=== PATIENT | male | born 1970 | race Caucasian/White ===

== ENCOUNTER 2018-03-29 14:56 | Emergency (ER) | payer MEDICAID, SELFPAY ==
[2018-03-29] MEDS: PERCOCET 5MG/325MG TAB PO (16:41)
== END 2018-03-29 17:41 | disposition home or self-care (01) ==
LOC: M ED 14:56
DX: S80.02XA Contusion of left knee, initial encounter (principal); M17.12 Unilateral primary osteoarthritis, left knee; W19.XXXA Unspecified fall, initial encounter; Y92.099 Unspecified place in other non-institutional residence as the place of occurrence of the external cause; Y93.9 Activity, unspecified; Y99.9 Unspecified external cause status; Z72.0 Tobacco use
CPT/HCPCS: 73564

== ENCOUNTER 2018-04-12 08:22 | Emergency (ER) | payer MEDICAID, OTHER ==
[2018-04-12] MEDS: NORCO, ANEXSIA 5/325MG TABLET (HYDROcodone/ACETAMINOPHEN) PO (09:46)
== END 2018-04-12 10:48 | disposition home or self-care (01) ==
LOC: M ED 08:22
DX: M25.571 Pain in right ankle and joints of right foot (principal); R60.0 Localized edema; M54.9 Dorsalgia, unspecified; C81.90 Hodgkin lymphoma, unspecified, unspecified site; F17.210 Nicotine dependence, cigarettes, uncomplicated
CPT/HCPCS: 73610

== ENCOUNTER → 2018-05-29 | Outpatient (CLI) | payer OTHER, MEDICAID ==
[2018-05-29 14:14] LABS: HEMATOCRIT 45.9 % (42.0-52.0); HEMOGLOBIN 15.9 g/dl (13.5-17.5); MEAN CORPUSCULAR HEMOGLOBIN 31.2 pg (27.0-33.0); MEAN CORPUSCULAR HGB CONC 34.6 g/dl (32.0-36.5); MEAN CORPUSCULAR VOLUME 90.2 fl (80.0-96.0); PLATELET COUNT, AUTOMATED 325 10^3/uL (150-450); RED BLOOD COUNT 5.09 10^6/uL (4.30-6.10); RED CELL DISTRIBUTION WIDTH 12.9 % (11.5-14.5); WHITE BLOOD COUNT 12.8 10^3/uL (4.0-10.0)
[2018-05-29 14:33] LABS: ESTIMATED AVERAGE GLUCOSE 117 MG/DL (60-110); HEMOGLOBIN A1c 5.7 %
[2018-05-29 14:45] LABS: ALBUMIN 3.6 GM/DL (3.2-5.2); ALKALINE PHOSPHATASE 80 U/L (45-117); ALT/SGPT 45 U/L (12-78); ANION GAP 9 MEQ/L (8-16); AST/SGOT 23 U/L (7-37); BILIRUBIN,TOTAL 0.4 MG/DL (0.2-1.0); BLOOD UREA NITROGEN 15 MG/DL (7-18); CALCIUM LEVEL 8.6 MG/DL (8.5-10.1); CARBON DIOXIDE LEVEL 24 MEQ/L (21-32); CHLORIDE LEVEL 108 MEQ/L (98-107); CREATININE FOR GFR 0.83 MG/DL (0.70-1.30); FREE T4 1.22 NG/DL (0.76-1.46); GLOMERULAR FILTRATION RATE > 60.0 (>56); GLUCOSE, FASTING 99 MG/DL (70-100); POTASSIUM SERUM 4.1 MEQ/L (3.5-5.1); SODIUM LEVEL 141 MEQ/L (136-145); TOTAL PROTEIN 7.2 GM/DL (6.4-8.2)
== END ==
LOC: M LAB 13:33
DX: R53.83 Other fatigue (principal); Z13.1 Encounter for screening for diabetes mellitus
CPT/HCPCS: 84443

== ENCOUNTER 2018-07-04 06:14 | Day surgery (SDC) | payer OTHER ==
[~2018-07-04 06:14] MED LIST: ACETAMINOPHEN 325 MG TAB PO; LIDOCAINE 1% MDV 20ML VIAL SQ
[2018-07-04] MEDS ORDERED: MAXITROL OPHTH SUSP 5 ML As Ordered (06:38)
[2018-07-04] MEDS: LR 1,000 ML IV (06:40)
[2018-07-04] MEDS ORDERED: LIDOCAINE 2% INJ 100 MG/5 ML SDV (FOR ANES.) As Ordered (06:52)
[2018-07-04] MEDS ORDERED: dexameTHASONE 4 MG/ML 1ML VIAL (J1100) As Ordered (06:52)
[2018-07-04] MEDS ORDERED: PROPOFOL 200 MG/20 ML VIAL As Ordered (06:52)
[2018-07-04] MEDS ORDERED: ONDANSETRON 4MG/2ML VIAL (J2405) As Ordered (06:52)
[2018-07-04] MEDS ORDERED: MIDAZOLAM INJ 2 MG/2 ML VIAL (J2250) As Ordered (06:53)
[2018-07-04] MEDS ORDERED: fentaNYL 100 MCG/2 ML INJECTION (J3010) As Ordered (06:53)
[2018-07-04] MEDS: ceFAZolin 1GM INJ (J0690 PER 500MG) As Ordered (07:48)
[2018-07-04] MEDS ORDERED: SUGAMMADEX SODIUM 500 MG/5 ML VIAL (BRIDION) As Ordered (07:58)
[2018-07-04] MEDS ORDERED: PHENYLephrine HCL 500 MCG/5 ML (100MCG/ML) SYRINGE (J2370) As Ordered (08:03)
[2018-07-04] MEDS: POVIDONE-IODINE 5% OPHTH PREP SOL 30ML As Ordered (08:03)
[2018-07-04] MEDS: LIDOCAINE 2% W/EPIN INJ 20ML **PRES FREE As Ordered (08:04)
[2018-07-04] MEDS: MAXITROL OPHTH OINT 3.5 GM As Ordered (09:10)
[2018-07-04] MEDS ORDERED: TRIMETHOBENZAMIDE 300 MG CAP PO (09:45)
[2018-07-04] MEDS ORDERED: LR 1,000 ML IV ×2 (09:45→11:00)
[2018-07-04] MEDS: fentaNYL 100 MCG/2 ML INJECTION (J3010) IV ×4 (10:00→10:21)
[2018-07-04] MEDS: PERCOCET 5MG/325MG TAB PO ×2 (10:04→10:25)
[2018-07-04] MEDS: ONDANSETRON 4MG/2ML VIAL (J2405) IV (10:08)
[2018-07-04] MEDS ORDERED: MORPHINE 4 MG/ML 1ML VIAL/SYRINGE (J2270) As Ordered (10:52)
[2018-07-04] MEDS ORDERED: fentaNYL 100 MCG/2 ML INJECTION (J3010) IV (11:00)
[2018-07-04] MEDS ORDERED: PERCOCET 5MG/325MG TAB PO (11:00)
[2018-07-04] MEDS ORDERED: ONDANSETRON 4MG/2ML VIAL (J2405) IV (11:00)
[2018-07-04] MEDS: MORPHINE 10 MG/ML 1ML VIAL (J2270) IV ×2 (11:01→11:07)
== END 2018-07-04 12:10 | disposition home or self-care (01) ==
LOC: M SDC 06:14
DX: H54.40 Blindness, one eye, unspecified eye (principal); H44.522 Atrophy of globe, left eye; F32.9 Major depressive disorder, single episode, unspecified; M17.0 Bilateral primary osteoarthritis of knee; Z92.21 Personal history of antineoplastic chemotherapy; Z85.72 Personal history of non-Hodgkin lymphomas; Z72.0 Tobacco use; Z87.81 Personal history of (healed) traumatic fracture
CPT/HCPCS: 65103

== ENCOUNTER → 2019-04-23 | Outpatient (CLI) | payer MEDICAID ==
[~2019-04-23] MED LIST changes: -ACETAMINOPHEN 325 MG TAB PO; -LIDOCAINE 1% MDV 20ML VIAL SQ; +MAXI0.1O OS; +MOBI4TAB PO; +NATU99.0 OS; +PERC5TAB12 PO
[2019-04-23 17:29] LABS: ALBUMIN 3.6 GM/DL (3.2-5.2); ALT/SGPT 39 U/L (12-78); BILIRUBIN,TOTAL 0.2 MG/DL (0.2-1.0); BLOOD UREA NITROGEN 15 MG/DL (7-18); CALCIUM LEVEL 8.5 MG/DL (8.5-10.1); CARBON DIOXIDE LEVEL 23 MEQ/L (21-32); CHLORIDE LEVEL 106 MEQ/L (98-107); CHOLESTEROL LEVEL 141 MG/DL (<200); CHOLESTEROL RISK RATIO 3.615 (<5); CREATININE FOR GFR 0.76 MG/DL (0.70-1.30); GLOMERULAR FILTRATION RATE > 60.0 (>56); GLUCOSE, FASTING 96 MG/DL (70-100); HDL CHOLESTEROL 39 MG/DL (>40); LDL CHOLESTEROL 86 MG/DL (<100); NON-HDL-C 102 MG/DL; POTASSIUM SERUM 4.4 MEQ/L (3.5-5.1); SODIUM LEVEL 139 MEQ/L (136-145); TOTAL PROTEIN 6.9 GM/DL (6.4-8.2); TRIGLYCERIDES LEVEL 82 MG/DL (<150)
[2019-04-25 06:53] LABS: HEPATITIS B SURFACE ANTIBODY POSITIVE (POSITIVE)
[2019-04-25 07:03] LABS: HEPATITIS B SURFACE ANTIGEN NEGATIVE (NEGATIVE)
[2019-04-25 08:07] LABS: HEPATITIS C VIRUS ABY INDEX > 11.0 INDEX (<0.8)
[2019-04-28 00:06] LABS: HEPATITIS A IgG TOTAL Positive (Negative); HEPATITIS C VIRUS GENOTYPE 1a (.)
== END ==
LOC: M LAB 16:00
PROVIDERS: ATTEND Hospitalist
DX: Z71.89 Other specified counseling (principal); B19.20 Unspecified viral hepatitis C without hepatic coma

== ENCOUNTER → 2019-04-25 | Outpatient (CLI) | payer OTHER, SELFPAY ==
--- NOTE | 2019-04-25 11:59 | REP ---
RIGHT UPPER QUADRANT ULTRASOUND: Real-time sonographic evaluation of the right upper quadrant performed. The patient has had prior cholecystectomy. There is expected prominence of common bile duct 9 mm in diameter. The liver demonstrates a cyst in the lateral left lobe 5 mm, inferolaterally in the right lobe 5 mm and at the right dome 1.5 cm in diameter. No gross pancreatic mass is seen. Right kidney demonstrates no hydronephrosis with normal size 1.5 cm in length. The visualized abdominal aorta is normal in caliber. There is no ascites. IMPRESSION: Status post cholecystectomy with expected prominent common bile duct 9 mm. Liver cysts. Electronically Signed by Antonio Rea MD 04/26/2019 09:23 A
== END ==
LOC: M RAD 09:49
PROVIDERS: ATTEND Hospitalist
DX: B18.2 Chronic viral hepatitis C (principal)

== ENCOUNTER → 2020-02-21 | Outpatient (REF) | payer OTHER | LOC: M SFHCPLAZ 14:46 | DX: Z86.19 Personal history of other infectious and parasitic diseases (principal); Z13.1 Encounter for screening for diabetes mellitus ==

== ENCOUNTER → 2020-03-05 | Outpatient (CLI) | payer OTHER ==
[2020-03-05 16:41] LABS: HEMATOCRIT 40.2 % (42.0-52.0); HEMOGLOBIN 13.8 g/dl (13.5-17.5); MEAN CORPUSCULAR HEMOGLOBIN 30.6 pg (27.0-33.0); MEAN CORPUSCULAR HGB CONC 34.3 g/dl (32.0-36.5); MEAN CORPUSCULAR VOLUME 89.1 fl (80.0-96.0); PLATELET COUNT, AUTOMATED 279 10^3/uL (150-450); RED BLOOD COUNT 4.51 10^6/uL (4.30-6.10); WHITE BLOOD COUNT 9.5 10^3/uL (4.0-10.0)
[2020-03-05 17:01] LABS: ALBUMIN 3.5 GM/DL (3.2-5.2); ALT/SGPT 52 U/L (12-78); BILIRUBIN,TOTAL 0.4 MG/DL (0.2-1.0); BLOOD UREA NITROGEN 16 MG/DL (7-18); CALCIUM LEVEL 8.6 MG/DL (8.5-10.1); CARBON DIOXIDE LEVEL 27 MEQ/L (21-32); CHLORIDE LEVEL 107 MEQ/L (98-107); CREATININE FOR GFR 0.72 MG/DL (0.70-1.30); GLOMERULAR FILTRATION RATE > 60.0 (>56); GLUCOSE, FASTING 105 MG/DL (70-100); HEMOGLOBIN A1c 5.6 %; POTASSIUM SERUM 3.7 MEQ/L (3.5-5.1); SODIUM LEVEL 140 MEQ/L (136-145); TOTAL PROTEIN 6.8 GM/DL (6.4-8.2)
[2020-03-31 08:06] LABS: HEPATITIS C QUANTITATION 910540 IU/mL (.)
== END ==
LOC: M LAB 15:57
PROVIDERS: ATTEND Hospitalist
DX: Z13.1 Encounter for screening for diabetes mellitus (principal); Z86.19 Personal history of other infectious and parasitic diseases

== ENCOUNTER 2020-04-11 00:41 | Emergency (ER) | payer OTHER ==
[~2020-04-11] VITALS: Ht 188 cm; Wt 90.1 kg
[2020-04-11 00:41] VITALS: BP 132/72
[2020-04-11] MEDS ORDERED: KETOROLAC 60MG 2ML VIAL IM ONE (01:30)
[2020-04-11] MEDS ORDERED: IBUPROFEN 800 MG TAB PO ONE (01:45)
--- NOTE | 2020-04-11 01:46 | REPVR ---
PROCEDURE INFORMATION: Exam: XR Lumbosacral Spine, 2 or 3 Views Exam date and time: 04/11/2020 1:22 AM Age: 50 years old Clinical indication: Pain; Other: Trauma; Additional info: Trauma TECHNIQUE: Imaging protocol: XR of the lumbosacral spine, 2 or 3 views. COMPARISON: No relevant prior studies available. FINDINGS: Limitations: Examination is limited by body habitus. Vertebrae: No acute fracture. No subluxation. Disc space narrowing at L5-S1. There appears to be transitional lumbosacral vertebra. Soft tissues: Unremarkable. Intraperitoneal space: Surgical clip in the right upper quadrant of the abdomen. Gastrointestinal tract: Copious stool in the colon. IMPRESSION: 1. No acute fracture. 2. Disc space narrowing at L5-S1. Electronically signed by: Huy Falcon On 04/11/2020 01:45:56 AM
== END 2020-04-11 01:58 | disposition home or self-care (01) ==
LOC: M ED 00:41
DX: S39.012A Strain of muscle, fascia and tendon of lower back, initial encounter (principal); F17.200 Nicotine dependence, unspecified, uncomplicated; Y92.9 Unspecified place or not applicable; Y93.9 Activity, unspecified; Y99.9 Unspecified external cause status

== ENCOUNTER 2020-09-26 13:41 | Emergency (ER) | payer OTHER, SELFPAY ==
[~2020-09-26] VITALS: Ht 188 cm; Wt 88.8 kg
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
--- OUTSIDE RECORDS SUMMARY | 2020-09-26 13:50 | CCD ---
Author Author [facility] Organization [facility] Address Unknown Phone Unavailable Care Team Providers Care Communications Agent Name Role Phone Vinicius Keenan Unavailable PROBLEMS Type Condition ICD9-CM Code KRH64-UO Code Onset Dates Condition S tatus SNOMED Code Notes Problem Other chronic pain G89.29 Active 42140308 Problem Osteoarthritis of left knee, unspecified osteoarthritis ty pe M17.12 Active 764023333260235 Problem Other hammer toe(s) (acquired), right foot M20.41 Active 025581541 Problem Chronic obstructive pulmonary disease, unspecified COPD ty pe J44.9 Active 99367623 Problem Obesity (BMI 30.0-34.9) E66.9 Active 40141825 4068372 Problem Chronic hepatitis C without hepatic coma B18.2 Active 689971684 Problem Smoking F17.200 Active 47591097 Problem Other hammer toe(s) (acquired), left foot M20.42 Active 63383886 ALLERGIES Allergen (clinical drug ingredient) Drug/Non Drug Allergy do cumented on EMR Reaction Allergy Type Onset Date Status Wellbutrin Hives Drug Allergy Active ENCOUNTERS from 1968 to 2020-08-14 Encounter Location Date Provider Diagnosis [facility] Resident [address] [place] [address] Feb, Vinicius Keenan History of hepatitis C Z86.1 9 ; Screening for diabetes mellitus Z13.1 ; Other hammer toe(s) (acquired), left foot M20.42 ; Other hammer toe(s) (acquired), right foot M20.41 ; Encounter for screening for malignant neoplasm of rectum Z12.12 ; Encounter for screening for malignant neoplasm of colon Z12.11 and Smoking F17.200 IMMUNIZATIONS Vaccine Route Administration Date Status Influenza (18 yrs & older) Flublok IM Intramuscular May 15, 2020 Administered SOCIAL HISTORY Tobacco Use: Social History Observation Description Date Details (start date - stop date) Current Smoker Sex Assigned At : Social History Observation Description Sex Assigned At Unknown Audit Question Answer Notes Total Score: 0 Interpretation: Alcohol Education Sexual Hx: Question Answer Notes Had sex in the last 12 months (vaginal, oral, or anal)? No Have you ever had an STD? No Drug and Alcohol Question Answer Notes Total Score: 0 Interpretation: No problems reported Alcohol Screening: Question Answer Notes Did you have a drink containing alcohol in the past year? No Points 0 Interpretation Negative BMI Care Goal Follow-Up Question Answer Notes Above Normal BMI Follow-Up Giving encouragement to exercise Tobacco Use: Question Answer Notes Are you a: current smoker How many cigarettes a day do you smoke? 6-10 Are you interested in quitting? Thinking about quitting Counseled the patient on smoking cessation, education [facility] ed 05/15/2020 REASON FOR REFERRAL No Information VITAL SIGNS Weight 197.8 lbs Feb, Height 72 in Feb, BMI 26.82 kg/m2 Feb, Heart Rate 72 /min Feb, Respiratory Rate 20 /min Feb, Temperature 97.6 degrees Fahrenheit Feb, Oximetry 97 Feb, Blood pressure systolic 126 mm Hg Feb, Blood pressure diastolic 76 mm Hg Feb, MEDICATIONS Medication SIG (Take, Route, Frequency, Duration) Notes Start Da te End Date Status Nicoderm CQ 21 MG/24HR 1 patch to skin Transdermal Once a day fo r 42 days Apr, Not-Taking Ventolin HFA 108 (90 Base) MCG/ACT 2 puffs as needed Inhalation every 6 hrs Apr, Active Capsaicin Arthritis Relief 0.15 % 1 application to aff ected area as needed Externally Three times a day for 30 day(s) Apr, Not-Taking Nicoderm CQ 14 MG/24HR 1 patch to skin Transdermal Once a day fo r 14 days Apr, Not-Taking Spiriva Respimat 2.5 MCG/ACT 2 puffs Inhalation Once a day Apr, Active Capsaicin-Menthol 0.025-10 % as directed Externally Ma x of 4 times a day as needed. Avoid use on damaged, broken, or irritated skin for 30 day(s) Apr, Not-Taking Mavyret 100-40 MG 3 tablets Orally Daily for 28 day(s) May, Active Nicoderm CQ 7 MG/24HR 1 patch to skin Transdermal Once a day for 14 days Apr, Not-Taking Meloxicam 7.5 MG 1 tablet Orally twice daily Not-Taking PROCEDURES No Information RESULTS Component Value Reference Range CBC - Complete Blood Count Reviewed date:03/06/2020 08:08:32 Interpretation: Performing Lab:[facility] [address] [facility] [address] , ,[place] [address] WHITE BLOOD COUNT 9.5 4.0-10.0 RED BLOOD COUNT 4.51 4.30-6.10 HEMOGLOBIN 13.8 13.5-17.5 HEMATOCRIT 40.2 42.0-52.0 MEAN CORPUSCULAR VOLUME 89.1 80.0-96.0 MEAN CORPUSCULAR HEMOGLOBIN 30.6 27.0-33.0 MEAN CORPUSCULAR HGB CONC 34.3 32.0-36.5 RED CELL DISTRIBUTION WIDTH 12.1 11.5-14.5 PLATELET COUNT, AUTOMATED 279 150-450 Comprehensive Metabolic Profile (CMP) Reviewed date:03/06/2020 08:08:04 Interpretation: Performing Lab:[facility] [address] [facility] [address] , ,[place] [address] GLUCOSE, FASTING 105 70-100 BLOOD UREA NITROGEN 16 7-18 CREATININE FOR GFR 0.72 0.70-1.30 GLOMERULAR FILTRATION RATE > 60.0 >56 SODIUM LEVEL 140 136-145 POTASSIUM SERUM 3.7 3.5-5.1 CHLORIDE LEVEL 107 98-107 CARBON DIOXIDE LEVEL 27 21-32 CALCIUM LEVEL 8.6 8.5-10.1 AST/SGOT 35 7-37 ALT/SGPT 52 12-78 ALKALINE PHOSPHATASE 60 45-117 BILIRUBIN,TOTAL 0.4 0.2-1.0 TOTAL PROTEIN 6.8 6.4-8.2 ALBUMIN 3.5 3.2-5.2 ALBUMIN/GLOBULIN RATIO 1.1 HEMOGLOBIN A1c Reviewed date:03/06/2020 08:08:16 Interpretation: Performing Lab:[facility] [address] [facility] [address] , ,[place] [address] HEMOGLOBIN A1c 5.6 ESTIMATED AVERAGE GLUCOSE 114 60-110 HEPATITIS C FIBROSURE [id number] Reviewed date:05/27/2020 14:07:11 Interpretation: Performing Lab:[facility], [facility] [address] [facility] [address] , ,[place] [address] FIBROSIS SCORE 0.55 0.00-0.21 FIBROSIS STAGE . NECROINFLAM SCORE 0.36 0.00-0.17 NECROINFLAMM GRADE A1-Minimal activity . ALPHA 2-MACROGLOBULIN 306 110-276 HAPTOGLOBIN 71 29-370 APOLIPOPROTEIN A-1 128 101-178 TOTAL BILIRUBIN 0.3 0.0-1.2 GGT 72 0-65 ALT 48 0-55 INTERPRETATION . FIBROSIS SCORING . NECROINFLAM SCORING . LIMITATIONS . COMMENT : . HEPATITIS C QUANT BY PCR Reviewed date:05/27/2020 14:07:11 Interpretation: Performing Lab:[facility] [address] [facility] [address] , ,[place] [address] HEPATITIS C QUANTITATION [id number] . Hepatitis C log10 5.959 . REASON FOR VISIT follow up MEDICAL (GENERAL) HISTORY Type Description Date Medical History Hepatitis C chronic 0 stage FII fibrosis score 0.55 HCV RNA 685622 Medical History IVDU HX Surgical History Rt ankle pin and screws 2006 Surgical History Apendectomy 2012 Surgical History Gallbladder 2018 Surgical History Lt eye 2006 Surgical History Left eye removal 08/2018 Hospitalization History Stated above Goals Section No Information Health Concerns No Information MEDICAL EQUIPMENT No Information MENTAL STATUS No Information FUNCTIONAL STATUS No Information ASSESSMENTS Encounter Date Diagnosis Assessment Notes Treatment Notes Treatm ent Clinical Notes Feb, History of hepatitis C (ICD-10 - Z86.19) Patient has a history of hepatitis C. He stated that he was planned to be treated however he never followed through with treatment and had moved to [place] where he was lost to follow-up. I had tested him for Hep B and A antibody to establish vaccination status as he stated that he was vaccinated previously. He does appear to have been vaccinated. He would need Pneumovax. Repeat labs demonstrate Hep C with worsening fibrosis. Patient will need Liver ultrasounds every 6 months with alpha feta protein quant until he is successfully treated. He has been referred to ID previously. He has no showed to his previous appointments to both this office and ID. Will refer him again. Feb, Screening for diabetes mellitus (ICD-10 - Z13.1) Feb, Other hammer toe(s) (acquired), left foot (ICD-1 0 - M20.42) Patient has bilateral hammertoes. Possibly secondary to poor fitting shoes. Patient screened for neuropathy today with filament testing which was negative. Have ordered HgbA1C for diabetes screening. Patient advsied to get better fitting shoes. If problem persists may consider referral to podiatry Feb, Other hammer toe(s) (acquired), right foot (ICD- 10 - M20.41) Feb, Encounter for screening for malignant neoplasm of rectum (ICD-10 - Z12.12) Patient is due for age appropriate colorectal cancer screening. He was referred previously however did not show up for his appointment. At this time the patient states that he will hold off until he gets treated for his Hep C Feb, Encounter for screening for malignant neoplasm of colon (ICD-10 - Z12.11) Feb, Smoking (ICD-10 - F17.200) Patient is a current smoker. He states that he has cut back to less than half a pack per day. Patient encouraged to continue cutting back PLAN OF TREATMENT Medication Medication Name Sig Start Date Stop Date Spiriva Respimat 2.5 MCG/ACT 2 puffs Inhalation Once a day 2018 Mavyret 100-40 MG 3 tablets Orally Daily for 28 day(s) May, Ventolin HFA 108 (90 Base) MCG/ACT 2 puffs as needed Inhalat ion every 6 hrs Apr, Treatment Notes Assessment Notes Clinical Notes History of hepatitis C Patient has a his tory of hepatitis C. He stated that he was planned to be treated however he never followed through with treatment and had moved to [place] where he was lost to follow-up. I had tested him for Hep B and A antibody to establish vaccination status as he stated that he was vaccinated previously. He does appear to have been vaccinated. He would need Pneumovax.Repeat labs demonstrate Hep C with worsening fibrosis. Patient will need Liver ultrasounds every 6 months with alpha feta protein quant until he is successfully treated. He has been referred to ID previously. He has no showed to his previous appointments to both this office and ID. Will refer him again. Other hammer toe(s) (acquired), left foot Patient has bilateral hammertoes. Possibly secondary to poor fitting shoes. Patient screened for neuropathy today with filament testing which was negative. Have ordered HgbA1C for diabetes screening. Patient advsied to get better fitting shoes. If problem persists may consider referral to podiatry Encounter for screening for malignant neoplasm of rectum Patient is due for age appropriate colorectal cancer screening. He was referred previously however did not show up for his appointment. At this time the patient states that he will hold off until he gets treated for his Hep C Smoking Patient is a current smoker. He states that he has cut back to less than half a pack per day. Patient encouraged to continue cutting back Next Appt Details 4 Weeks Reason:F/U for labs Provider Name:Vinicius Keenan, 02:00:00 PM, [address] [place] [address], [address], Follow Up:4 WeeksF/U for labs Insurance Providers Payer Name Payer Address Payer Phone Insured Name Patient Relati onship to Insured Coverage Start Date Coverage End Date SELF PAY ONLY - SP1 DARRIAN ARAIZA self
[2020-09-26 14:48] VITALS: BP 140/70
--- OUTSIDE RECORDS SUMMARY | 2020-09-26 15:10 | CCD ---
Author Author [facility] Organization [facility] Address Unknown Phone Unavailable Support Name Relationship Address Phone JEROD RIOS Next Of Kin Unknown GEOVANNA ARAIZA Next Of Kin [address] [place] [address] UE Next Of Kin Unknown Unavailable SISTER KENZIE LEVI Next Of Kin [address] [place], [place] [id number] Geovanna Forman ECON [address] [place] [address] Unavailable Re-disclosure Warning The records that you [...] is protected by Article 27-F of the [facility] Public Health law. If you continue you may have access to information: Regarding HIV / AIDS; Provided by facilities licensed or operated by the [facility] Office of Mental Health; or Provided by the [facility] Office for People With Developmental Disabilities. If such information is present, then the following [facility] mandated warning applies: This information has [...] law may result in a fine or fpc sentence or both. A general authorization for the release of medical or other information is NOT sufficient authorization for further disc losure. Encounters Encounter Providers Location Date Indications Data Source(s ) [place] [address] [facility] [address] 06/19/2020 12:00:00 AM EST eCW1 ([facility]) [place] [address] [facility] [address] 05/15/2020 12:00:00 AM EDT eCW1 ([facility]) [place] [address] [facility] [address] 02/21/2020 12:00:00 AM EDT eCW1 ([facility]) Immunizations Vaccine Date Status Description Data Source(s) influenza, recombinant, quadrIvalent,injectable, prese rvative free 05/15/2020 01:09:00 PM EDT completed eCW1 ([facility]) influenza, recombinant, quadrIvalent,injectable, prese rvative free 05/15/2020 01:09:00 PM EDT completed eCW1 ([facility]) influenza, recombinant, quadrIvalent,injectable, prese rvative free 05/15/2020 01:09:00 PM EDT completed eCW1 ([facility]) Medications Medication Brand Name Start Date Product [...] {tablets} active Mavyret 100-40 MG eC W1 ([facility]) Mavyret 100-40 MG Mavyret 100-40 MG 05/15/2020 12:00:00 AM EDT 3.0 {tablets} active Mavyret 100-40 MG eC W1 ([facility]) Mavyret 100-40 MG Mavyret 100-40 MG 05/15/2020 12:00:00 AM EDT 3.0 {tablets} active Mavyret 100-40 MG eC W1 ([facility]) 800 mg 09/21/2019 12:00:00 AM EST [...] type / Coverage type Policy ID Covered democrat ID Covered democrat's relationship to burr Policy Burr Plan Information [facility] [id number] PROGRESSIVE CO NO FAULT [id number] SP [id number] SELF PAY ONLY [id number] SP [id number] PROGRESSIVE O [id number] S [id number] [facility] [id number] SP [id number] SELF PAY ONLY - SP1 SP SELF PAY ONLY [id number] SP [id number] MEDICAID [id number] SP [id number] [facility]O [id number] SP [id number] [facility] [place] - [id number] 18 [id number] ANSI-Commercial [id number] MAURO [id number] SP [id number] MEDICAID [id number] SP [id number] ANSI-Commercial [id number] ANSI-Commercial [id number] ANSI-Commercial [id number] MAURO [id number] SP [id number] MEDICAID M [id number] S [id number] SELF PAY SP Problems, Conditions, and Diagnoses Code Display Name Description Problem Type Effective Dates Data Source(s) J44.9 76408185 Chronic obstructive pulmonary di sease, unspecified COPD type Problem 05/15/2020 12:00:00 AM EDT eCW1 ([facility]) M20.42 15469509 Other hammer toe(s) (acquired), left foot Problem 02/21/2020 12:00:00 AM EDT eCW1 ([facility]) F17.200 67071724 Smoking Problem 02/21/2020 12:00:00 AM ED T eCW1 ([facility]) M20.41 903942917 Other hammer toe(s) (acquired), right luiz t Problem 02/21/2020 12:00:00 AM EDT eCW1 ([facility]) Results ID Date Data Source HEPATITIS C QUANT BY PCR 03/05/2020 12:00:00 AM EDT eCW1 ([facility]) Name Value Range Interpretation Code Description Data Ling rce(s) Supporting Document(s) 5.959 . Hepatitis C log10 eCW1 ([facility]) 577672 . HEPATITIS C QUANTITATION eCW1 ([facility]) ID Date Data Source HEPATITIS C FIBROSURE [id number] 03/05/2020 12:00:00 AM EDT eC W1 ([facility]) Name Value Range Interpretation Code Description Data Ling rce(s) Supporting Document(s) 0.55 0.00-0.21 FIBROSIS SCORE eCW1 ([facility]) A1-Minimal activity . NECROINFLAMM GRA DE eCW1 ([facility]) 306 110-276 ALPHA 2-MACROGLOBULIN eCW1 ([facility]) 0.36 0.00-0.17 NECROINFLAM SCORE eCW1 ([facility]) . FIBROSIS STAGE eCW1 ([facility]) 128 101-178 APOLIPOPROTEIN A-1 eCW1 ([facility]) 0.3 0.0-1.2 TOTAL BILIRUBIN eCW1 ([facility]) 72 0-65 GGT eCW1 ([facility]) 71 29-370 HAPTOGLOBIN eCW1 ([facility]) . FIBROSIS SCORING eCW1 ([facility]) . NECROINFLAM SCORING eCW1 ([facility]) . LIMITATIONS eCW1 ([facility]) . INTERPRETATION eCW1 ([facility]) 48 0-55 ALT eCW1 ([facility]) . COMMENT : eCW1 ([facility]) ID Date Data Source [id number] 03/05/2020 12:00:00 AM EDT eCW1 ([facility]) Name Value Range Interpretation Code Description Data Ling rce(s) Supporting Document(s) Hemoglobin A1c/Hemoglobin.total in Blood 5.6 HEMOGLOBIN A1c eCW1 ([facility]) ID Date Data Source Comprehensive Metabolic Profile (CMP) 03/05/2020 12:00:00 AM EDT eCW1 ([facility]) Name Value Range Interpretation Code Description Data Ling rce(s) Supporting Document(s) 105 70-100 GLUCOSE, FASTING eCW1 ([facility]) > 60.0 >56 GLOMERULAR FILTRATION RATE eCW 1 ([facility]) 0.72 0.70-1.30 CREATININE FOR GFR eCW1 ([facility]) 16 7-18 BLOOD UREA NITROGEN eCW1 ([facility]) 107 98-107 CHLORIDE LEVEL eCW1 ([facility]) 27 21-32 CARBON DIOXIDE LEVEL eCW1 ([facility]) 140 136-145 SODIUM LEVEL eCW1 ([facility]) 3.7 3.5-5.1 POTASSIUM SERUM eCW1 ([facility]) 35 7-37 AST/SGOT eCW1 ([facility]) 52 12-78 ALT/SGPT eCW1 ([facility]) 60 45-117 ALKALINE PHOSPHATASE eCW1 ([facility]) 8.6 8.5-10.1 CALCIUM LEVEL eCW1 ([facility]) 6.8 6.4-8.2 TOTAL PROTEIN eCW1 ([facility]) 1.1 ALBUMIN/GLOBULIN RATIO eCW1 ([facility]) 3.5 3.2-5.2 ALBUMIN eCW1 ([facility]) 0.4 0.2-1.0 BILIRUBIN,TOTAL eCW1 ([facility]) ID Date Data Source CBC - Complete Blood Count 03/05/2020 12:00:00 AM EDT eCW1 ( [facility]) Name Value Range Interpretation Code Description Data Ling rce(s) Supporting Document(s) 9.5 4.0-10.0 WHITE BLOOD COUNT eCW1 ([facility]) 13.8 13.5-17.5 HEMOGLOBIN eCW1 ([facility]) 40.2 42.0-52.0 HEMATOCRIT eCW1 ([facility]) 4.51 4.30-6.10 RED BLOOD COUNT eCW1 ([facility]) 89.1 80.0-96.0 MEAN CORPUSCULAR VOLUME e CW1 ([facility]) 34.3 32.0-36.5 MEAN CORPUSCULAR HGB CONC eCW1 ([facility]) 30.6 27.0-33.0 MEAN CORPUSCULAR HEMOGLOB IN eCW1 ([facility]) 12.1 11.5-14.5 RED CELL DISTRIBUTION WID TH eCW1 ([facility]) 279 150-450 PLATELET COUNT, AUTOMATED eCW1 ([facility]) Procedure Social History Code Duration Value Status Description Data Source(s ) Smoking 05/15/2020 12:00:00 AM EDT Current Smoker completed Curre nt Smoker eCW1 ([facility]) Smoking 05/15/2020 12:00:00 AM EDT Current Smoker completed Curre nt Smoker eCW1 ([facility]) Smoking 05/15/2020 12:00:00 AM EDT Current Smoker completed Curre nt Smoker eCW1 ([facility]) Vital Signs ID Date Data Source UNK Name Value Range Interpretation Code Description Data Source(s) Diastolic blood pressure 62 mm[Hg] 62 mm[Hg] eCW1 ([facility]) Systolic blood pressure 124 mm[Hg] 124 mm[Hg] e CW1 ([facility]) Body temperature 98.9 [degF] 98.9 [degF] eCW1 ( [facility]) Respiratory rate 18 /min 18 /min eCW1 ([facility]) Heart rate 81 /min 81 /min eCW1 ([facility]) Body mass index (BMI) [Ratio] 26.58 kg/m2 26.58 kg/m2 eCW1 ([facility]) Body height 72 [in_i] 72 [in_i] eCW1 ([facility]) Body weight 196 [lb_av] 196 [lb_av] eCW1 ([facility]) Diastolic blood pressure 76 mm[Hg] 76 mm[Hg] eCW1 ([facility]) Systolic blood pressure 126 mm[Hg] 126 mm[Hg] e CW1 ([facility]) Body temperature 97.6 [degF] 97.6 [degF] eCW1 ( [facility]) Respiratory rate 20 /min 20 /min eCW1 ([facility]) Heart rate 72 /min 72 /min eCW1 ([facility]) Body mass index (BMI) [Ratio] 26.82 kg/m2 26.82 kg/m2 eCW1 ([facility]) Body height 72 [in_i] 72 [in_i] eCW1 ([facility]) Body weight 197.8 [lb_av] 197.8 [lb_av] eCW1 ([facility]) Patient Treatment Plan of Care Planned Activity Planned Date Details Description Data Source (s) Mavyret 100-40 MG 05/15/2020 12:00:00 AM EDT eCW1 ([facility]) Mavyret 100-40 MG 05/15/2020 12:00:00 AM EDT eCW1 ([facility]) Mavyret 100-40 MG 05/15/2020 12:00:00 AM EDT eCW1 ([facility])
== END 2020-09-26 14:49 | disposition home or self-care (01) ==
LOC: M ED 13:41
DX: S29.012A Strain of muscle and tendon of back wall of thorax, initial encounter (principal); X58.XXXA Exposure to other specified factors, initial encounter; Y92.9 Unspecified place or not applicable; Y93.9 Activity, unspecified; Y99.9 Unspecified external cause status

== ENCOUNTER → 2020-12-25 | Outpatient (REF) ==
--- NOTE | 2020-12-25 15:30 | REPPI ---
INDICATION: DISABILITY DIAGNOSIS DETERMINATION COMPARISON: None. TECHNIQUE: AP, lateral, bilateral oblique views left foot. FINDINGS: Degenerative changes include joint space narrowing involving the interphalangeal joints as well as increased sclerosis and joint space narrowing at the 1st metatarsophalangeal joint. No acute fracture or dislocation.. Lateral view demonstrates very small calcaneal heel spur. IMPRESSION: Mild relatively age-related degenerative changes. <Electronically signed by Demarcus Lange > 12/25/20 [id number]
--- NOTE | 2020-12-25 15:46 | REPPI ---
INDICATION: DISABILITY DIAGNOSIS DETERMINATION COMPARISON: None. TECHNIQUE: AP, lateral, bilateral oblique and sunrise views. FINDINGS: The osseous structures and joint spaces are intact and essentially age-appropriate. Lateral view demonstrates very subtle spurring along the posterior patellar contour with subtle patellofemoral joint space narrowing. There is no evidence for acute fracture or dislocation. No joint effusion is appreciated. Surrounding soft tissues are unremarkable. No subcutaneous emphysema or radiodense foreign body. IMPRESSION: Very minimal degenerative changes involving the patella and patellofemoral joint space. <Electronically signed by Demarcus Lange > 12/25/20 [id number]
== END ==
LOC: M PLAIMG 13:59
PROVIDERS: ATTEND Internal Medicine
DX: M19.072 Primary osteoarthritis, left ankle and foot (principal); M17.12 Unilateral primary osteoarthritis, left knee

== ENCOUNTER 2024-04-26 17:57 | Emergency (ER) | payer OTHER, SELFPAY | END 2024-04-26 18:07 | disposition left against medical advice (07) | LOC: M ED 17:57 | DX: Z53.21 Procedure and treatment not carried out due to patient leaving prior to being seen by health care provider (principal) ==

== ENCOUNTER 2024-04-27 00:59 | Emergency (ER) | payer SELFPAY ==
[~2024-04-27] VITALS: Ht 188 cm; Wt 88.3 kg
[2024-04-27 01:01] VITALS: TEMP 96.3
[2024-04-27 06:02] VITALS: BP 128/72; O2SAT 96
== END 2024-04-27 06:03 | disposition home or self-care (01) ==
LOC: M ED 00:59
DX: S22.41XA Multiple fractures of ribs, right side, initial encounter for closed fracture (principal); V03.131A Pedestrian on standing electric scooter injured in collision with car, pick-up or van in traffic accident, initial encounter; Y92.410 Unspecified street and highway as the place of occurrence of the external cause; Y93.89 Activity, other specified; Y99.9 Unspecified external cause status

== ENCOUNTER 2024-08-28 05:50 | Inpatient (IN) | payer MEDICAID, SELFPAY ==
[~2024-08-28] VITALS: Ht 188 cm; Wt 90.5 kg
[2024-08-28 08:29] LABS: HEMATOCRIT 46.4 % (42.0-52.0); HEMOGLOBIN 16.4 g/dl (13.5-17.5); MEAN CORPUSCULAR HEMOGLOBIN 31.2 pg (27.0-33.0); MEAN CORPUSCULAR HGB CONC 35.3 g/dl (32.0-36.5); MEAN CORPUSCULAR VOLUME 88.2 fl (80.0-96.0); PLATELET COUNT, AUTOMATED 419 10^3/uL (150-450); RED BLOOD COUNT 5.26 10^6/uL (4.30-6.10); WHITE BLOOD COUNT 17.9 10^3/uL (4.0-10.0)
[2024-08-28 08:47] LABS: ETHYL ALCOHOL (ETHANOL) < 0.003 % (0.000-0.010)
[2024-08-28 08:48] LABS: SALICYLATE LEVEL < 3.0 MG/DL (<30)
[2024-08-28 08:49] LABS: ALBUMIN 4.1 G/DL (3.2-5.2); ALKALINE PHOSPHATASE 93 U/L (40-129); ALT/SGPT 25 U/L (7.0-40); AST/SGOT 31 U/L (<34); BILIRUBIN,DIRECT 0.3 MG/DL (<0.4); BILIRUBIN,TOTAL 0.8 MG/DL (0.3-1.2); BLOOD UREA NITROGEN 8 MG/DL (9-23); CALCIUM LEVEL 9.2 MG/DL (8.5-10.1); CARBON DIOXIDE LEVEL 30 MMOL/L (20-31); CHLORIDE LEVEL 103 MMOL/L (98-107); CREATININE FOR GFR 0.79 MG/DL (0.70-1.30); GLOMERULAR FILTRATION RATE > 60.0 (>56); GLUCOSE, FASTING 115 MG/DL (60-100); SODIUM LEVEL 140 MMOL/L (136-145); TOTAL PROTEIN 7.9 G/DL (5.7-8.2)
[2024-08-28] MEDS ORDERED: HOME MED LIST COMPLETE! XX SCH (08:50)
[2024-08-28 08:53] LABS: THYROID STIMULATING HORMONE 2.168 uIU/ML (0.55-4.78)
[2024-08-28 08:58] LABS: BARBITURATES URINE NEGATIVE (NEGATIVE); BENZODIAZEPINES URINE NEGATIVE (NEGATIVE); CANNABINOIDS URINE NEGATIVE (NEGATIVE); COCAINE METABOLITE URINE NEGATIVE (NEGATIVE); METHADONE URINE NEGATIVE (NEGATIVE); OPIATES URINE NEGATIVE (NEGATIVE); PHENCYCLIDINE URINE NEGATIVE (NEGATIVE)
[2024-08-28 09:05] LABS: AMPHETAMINES LEVEL URINE POSITIVE (NEGATIVE)
[2024-08-28 10:23] LABS: KETONE, URINE AUTO RFX NEGATIVE (NEGATIVE); LEUKOCYTE ESTERASE UR AUTO RFX NEGATIVE (NEGATIVE); MUCUS, URINE RFX SMALL (NEGATIVE); NITRITE, URINE AUTO RFX NEGATIVE (NEGATIVE); RBC, URINE AUTO RFX 1 /HPF (0-3); SQUAM EPITHELIAL CELL UR AURFX 0 /HPF (0-6); WBC, URINE AUTO RFX 0 /HPF (0-3)
[2024-08-28] MEDS: LORazepam 1 MG TAB PO STA (10:36)
[2024-08-29] MEDS ORDERED: diphenhydrAMINE 50MG/ML VIAL IM ONE (13:30)
[2024-08-29] MEDS ORDERED: HALOPERIDOL LACTATE 5MG/ML VIAL IM ONE (13:30)
[2024-08-29] MEDS ORDERED: LORazepam 2 MG/ML 1ML VIAL IM ONE (13:30)
[2024-08-29] MEDS: OLANZapine ORAL DISINTEGRATING TAB 5MG PO ONE (13:36)
[2024-08-29 14:42] VITALS: BP 118/60; TEMP 98.4; O2SAT 100
[2024-08-29] MEDS: NICOTINE 21MG/24HR 1 EA TRANSDERMAL TD ONE (15:54)
[2024-08-29] MEDS: ACETAMINOPHEN 325 MG TAB PO ONE (15:54)
[2024-08-29] MEDS ORDERED: MAALOX 30 ML SUSP *UDC PO PRN (21:10)
[2024-08-29] MEDS ORDERED: OLANZapine 5 MG TAB PO PRN (21:10)
[2024-08-29] MEDS ORDERED: MOM 30ML SUSPENSION UDC PO PRN (21:10)
[2024-08-30] MEDS: diphenhydrAMINE 25MG CAP PO PRN (01:37)
[2024-08-30] MEDS: traZODone 50 MG TAB PO PRN (01:37)
[2024-08-30 06:56] VITALS: BP 145/67; TEMP 97.3; O2SAT 100
[2024-08-30] MEDS: NICOTINE 14 MG/24 HR TRANSDERMAL TD SCH (09:23)
[2024-08-30 16:55] VITALS: BP 149/71; TEMP 96.8; O2SAT 98
[2024-08-30 18:22] LABS: PROCALCITONIN 0.09 ng/ml
[2024-08-30] MEDS: MIRTAZAPINE 7.5MG PER 1/2 TABLET PO SCH (20:47)
[2024-08-30] MEDS: IBUPROFEN 400MG TAB PO PRN (20:48)
[2024-08-31 06:54] VITALS: BP 146/67; TEMP 97.5; O2SAT 100
[2024-08-31] MEDS: ACETAMINOPHEN 325 MG TAB PO PRN (15:25)
[2024-08-31 17:27] VITALS: BP 151/67; TEMP 97.7; O2SAT 99
[2024-08-31] MEDS: OLANZapine ORAL DISINTEGRATING TAB 5MG PO PRN (20:46)
[2024-09-01] MEDS: LORazepam 1 MG TAB PO ONE (01:26)
[2024-09-02] MEDS ORDERED: NICOTINE 14 MG/24 HR TRANSDERMAL TD PRN (15:15)
[2024-09-03 15:46] VITALS: BP 139/84; TEMP 97.7; O2SAT 99
[2024-09-05] MEDS ORDERED: MIRT-10 PO (08:33)
== END 2024-09-05 11:46 | disposition home or self-care (01) | DRG 754 ==
LOC: M ED 05:50 → M ED INP 08-29 13:50 → M PSY 08-29 14:51
PROVIDERS: ADMIT Psychiatry & Neurology Psychiatry; ATTEND Psychiatry & Neurology Psychiatry
DX: F32.A Depression, unspecified (principal); R45.851 Suicidal ideations; F41.9 Anxiety disorder, unspecified; F15.10 Other stimulant abuse, uncomplicated; F17.200 Nicotine dependence, unspecified, uncomplicated; D72.829 Elevated white blood cell count, unspecified

== ENCOUNTER 2024-11-06 13:17 | Inpatient (IN) | payer MEDICAID, SELFPAY ==
[~2024-11-06] VITALS: Ht 188 cm; Wt 91.9 kg
[~2024-11-06 13:17] MED LIST changes: +MIRT-10 PO
[2024-11-06 14:10] LABS: HEMATOCRIT 47.2 % (42.0-52.0); HEMOGLOBIN 16.3 g/dl (13.5-17.5); MEAN CORPUSCULAR HEMOGLOBIN 30.4 pg (27.0-33.0); MEAN CORPUSCULAR HGB CONC 34.5 g/dl (32.0-36.5); MEAN CORPUSCULAR VOLUME 87.9 fl (80.0-96.0); PLATELET COUNT, AUTOMATED 468 10^3/uL (150-450); RED BLOOD COUNT 5.37 10^6/uL (4.30-6.10); WHITE BLOOD COUNT 15.1 10^3/uL (4.0-10.0)
[2024-11-06 14:29] LABS: BARBITURATES URINE NEGATIVE (NEGATIVE); BENZODIAZEPINES URINE NEGATIVE (NEGATIVE); COCAINE METABOLITE URINE NEGATIVE (NEGATIVE); METHADONE URINE NEGATIVE (NEGATIVE); OPIATES URINE NEGATIVE (NEGATIVE); PHENCYCLIDINE URINE NEGATIVE (NEGATIVE)
[2024-11-06 14:31] LABS: AMPHETAMINES LEVEL URINE POSITIVE (NEGATIVE); CANNABINOIDS URINE POSITIVE (NEGATIVE); ETHYL ALCOHOL (ETHANOL) 0.004 % (0.000-0.010)
[2024-11-06 14:33] LABS: ALBUMIN 3.8 G/DL (3.2-5.2); ALKALINE PHOSPHATASE 89 U/L (40-129); ALT/SGPT 28 U/L (7.0-40); AST/SGOT 20 U/L (<34); BILIRUBIN,DIRECT 0.3 MG/DL (<0.4); BILIRUBIN,TOTAL 0.8 MG/DL (0.3-1.2); BLOOD UREA NITROGEN 11 MG/DL (9-23); CALCIUM LEVEL 9.4 MG/DL (8.5-10.1); CARBON DIOXIDE LEVEL 28 MMOL/L (20-31); CHLORIDE LEVEL 106 MMOL/L (98-107); GLOMERULAR FILTRATION RATE > 60.0 (>56); GLUCOSE, FASTING 114 MG/DL (60-100); POTASSIUM SERUM 4.7 MMOL/L (3.5-5.1); SALICYLATE LEVEL < 3.0 MG/DL (<30); SODIUM LEVEL 141 MMOL/L (136-145); TOTAL PROTEIN 7.4 G/DL (5.7-8.2)
[2024-11-06 14:35] LABS: THYROID STIMULATING HORMONE 1.825 uIU/ML (0.55-4.78)
[2024-11-06] MEDS: FOLIC ACID 1MG TAB PO SCH (14:40)
[2024-11-06] MEDS: THIAMINE 100 MG TAB PO SCH ×2 (14:40→21:00)
[2024-11-06] MEDS: MULTIVITAMINS/MINERALS THERAP 1 TAB PO SCH (14:40)
[2024-11-06] MEDS ORDERED: HOME MED LIST COMPLETE! XX SCH (16:30)
[2024-11-06] MEDS: LORazepam 2 MG TAB PO PRN (17:19)
[2024-11-06] MEDS ORDERED: ACETAMINOPHEN 325 MG TAB PO PRN (18:20)
[2024-11-06] MEDS ORDERED: MAALOX 30 ML SUSP *UDC PO PRN (18:20)
[2024-11-06] MEDS ORDERED: diphenhydrAMINE 25MG CAP PO PRN (18:20)
[2024-11-06 20:56] VITALS: BP 122/71; TEMP 98.3; O2SAT 96
[2024-11-07 06:27] VITALS: BP 142/71; TEMP 98.2; O2SAT 95
[2024-11-07] MEDS: FOLIC ACID 1MG TAB PO SCH (09:00)
[2024-11-07] MEDS: OLANZapine 5 MG TAB PO SCH (09:00)
[2024-11-07] MEDS: MULTIVITAMINS/MINERALS THERAP 1 TAB PO SCH (09:00)
[2024-11-07 14:19] VITALS: BP 126/63
[2024-11-07 14:58] VITALS: BP 126/63; TEMP 98.1; O2SAT 99
[2024-11-08] VITALS (7 sets, daily range): BP systolic 123–161; BP diastolic 59–89; TEMP 97.8; O2SAT 97–98
[2024-11-08] MEDS: LORazepam 2 MG TAB PO PRN (06:30)
[2024-11-08] MEDS: traZODone 50 MG TAB PO PRN (21:56)
[2024-11-09 06:28] VITALS: BP 125/58; TEMP 97.8; O2SAT 96
[2024-11-09] MEDS: IBUPROFEN 400MG TAB PO PRN (08:44)
[2024-11-09] MEDS: ESCITALOPRAM OXALATE 10 MG TAB (LEXAPRO) PO SCH (09:54)
[2024-11-09 22:00] VITALS: BP 132/78
[2024-11-10 06:16] VITALS: BP 128/74; TEMP 98.2; O2SAT 99
[2024-11-10 06:17] VITALS: BP 128/74
[2024-11-10 15:51] VITALS: BP 132/66; TEMP 98.1; O2SAT 98
[2024-11-10] MEDS: NICOTINE POLACRILEX 2 MG GUM PO PRN (17:47)
[2024-11-10] MEDS: traZODone 50 MG TAB PO PRN (20:13)
[2024-11-11 14:37] VITALS: BP 135/85; TEMP 98; O2SAT 97
[2024-11-12 06:35] VITALS: BP 131/69; TEMP 97.9; O2SAT 96
[2024-11-12 15:36] VITALS: BP 144/76; TEMP 97.8; O2SAT 96
[2024-11-12] MEDS: MOM 30ML SUSPENSION UDC PO PRN (20:11)
[2024-11-13 06:41] VITALS: BP 131/66; TEMP 97.4; O2SAT 96
[2024-11-13] MEDS: ESCITALOPRAM OXALATE 5MG TABLET (LEXAPRO) PO SCH (08:24)
[2024-11-13 15:28] VITALS: BP 147/80; TEMP 97.8; O2SAT 97
[2024-11-13] MEDS: traZODone 50 MG TAB PO SCH (22:14)
[2024-11-14 06:40] VITALS: BP 128/80; TEMP 97.9; O2SAT 95
[2024-11-14] MEDS: ESCITALOPRAM OXALATE 10 MG TAB (LEXAPRO) PO SCH (08:11)
[2024-11-15] MEDS ORDERED: COLA100C5 PO (08:43)
== END 2024-11-14 12:35 | disposition home or self-care (01) | DRG 751 ==
LOC: M ED 13:17 → M ED INP 18:19 → M PSY 20:56
PROVIDERS: ADMIT Psychiatry & Neurology Neurology; ATTEND Psychiatry & Neurology Neurology
DX: F33.1 Major depressive disorder, recurrent, moderate (principal); F14.20 Cocaine dependence, uncomplicated; R45.851 Suicidal ideations; F15.20 Other stimulant dependence, uncomplicated; F41.9 Anxiety disorder, unspecified; B18.2 Chronic viral hepatitis C; G43.909 Migraine, unspecified, not intractable, without status migrainosus; F17.200 Nicotine dependence, unspecified, uncomplicated; F10.10 Alcohol abuse, uncomplicated; Z59.00 Homelessness unspecified; G47.00 Insomnia, unspecified

== ENCOUNTER 2024-11-15 05:15 | Emergency (ER) | payer MEDICAID, OTHER, SELFPAY ==
[~2024-11-15] VITALS: Ht 188 cm; Wt 98.0 kg
[2024-11-15 06:47] LABS: KETONE, URINE AUTO RFX NEGATIVE (NEGATIVE); LEUKOCYTE ESTERASE UR AUTO RFX NEGATIVE (NEGATIVE); MUCUS, URINE RFX SMALL (NEGATIVE); NITRITE, URINE AUTO RFX NEGATIVE (NEGATIVE); RBC, URINE AUTO RFX 1 /HPF (0-3); SQUAM EPITHELIAL CELL UR AURFX 0 /HPF (0-6); WBC, URINE AUTO RFX 0 /HPF (0-3)
[2024-11-15 07:31] LABS: BASO # 0.2 10^3/uL (0.0-0.2); BASO % 0.8 % (0.0-1.0); EOS # 0.6 10^3/uL (0.0-0.5); EOS % 3.6 % (0.0-3.0); HEMATOCRIT 46.8 % (42.0-52.0); HEMOGLOBIN 16.1 g/dl (13.5-17.5); LYMPH # 4.2 10^3/uL (1.5-5.0); LYMPH % 23.6 % (24.0-44.0); MEAN CORPUSCULAR HEMOGLOBIN 30.6 pg (27.0-33.0); MEAN CORPUSCULAR HGB CONC 34.4 g/dl (32.0-36.5); MEAN CORPUSCULAR VOLUME 88.8 fl (80.0-96.0); MONO % 11.6 % (2.0-8.0); NEUTROPHILS # 10.6 10^3/uL (1.5-8.5); NEUTROPHILS % 59.8 % (36.0-66.0); PLATELET COUNT, AUTOMATED 444 10^3/uL (150-450); RED BLOOD COUNT 5.27 10^6/uL (4.30-6.10); WHITE BLOOD COUNT 17.7 10^3/uL (4.0-10.0)
[2024-11-15 07:59] LABS: LIPASE 40 U/L (12-53)
[2024-11-15 08:00] LABS: CK-MB VALUE MASS 2.1 NG/ML (<3.6)
[2024-11-15 08:02] LABS: ALBUMIN 4.2 G/DL (3.2-5.2); ALKALINE PHOSPHATASE 84 U/L (40-129); ALT/SGPT 45 U/L (7.0-40); AST/SGOT 31 U/L (<34); BILIRUBIN,TOTAL 0.8 MG/DL (0.3-1.2); BLOOD UREA NITROGEN 13 MG/DL (9-23); CALCIUM LEVEL 9.1 MG/DL (8.5-10.1); CARBON DIOXIDE LEVEL 30 MMOL/L (20-31); CHLORIDE LEVEL 102 MMOL/L (98-107); CREATININE FOR GFR 0.64 MG/DL (0.70-1.30); GLOMERULAR FILTRATION RATE > 60.0 (>56); GLUCOSE, FASTING 113 MG/DL (60-100); POTASSIUM SERUM 3.8 MMOL/L (3.5-5.1); SODIUM LEVEL 139 MMOL/L (136-145); TOTAL PROTEIN 7.7 G/DL (5.7-8.2)
[2024-11-15 08:16] LABS: MB/CK RELATIVE INDEX 1.61 (< OR =4)
[2024-11-15] MEDS ORDERED: COLA100C5 PO (08:43)
[2024-11-15 08:49] VITALS: BP 156/79; TEMP 97.4; O2SAT 98
[2024-11-15] MEDS: MAGNESIUM CITRATE 300ML BTL PO ONE (08:50)
== END 2024-11-15 08:51 | disposition home or self-care (01) ==
LOC: M ED 05:15
DX: R10.9 Unspecified abdominal pain (principal); K59.00 Constipation, unspecified; G43.909 Migraine, unspecified, not intractable, without status migrainosus; F32.A Depression, unspecified

== ENCOUNTER 2024-11-16 11:34 | Inpatient (IN) | payer MEDICAID ==
[~2024-11-16] VITALS: Ht 188 cm; Wt 96.1 kg
[~2024-11-16 11:34] MED LIST changes: +COLA100C5 PO
[2024-11-16 12:17] LABS: HEMATOCRIT 45.5 % (42.0-52.0); HEMOGLOBIN 15.5 g/dl (13.5-17.5); MEAN CORPUSCULAR HGB CONC 34.1 g/dl (32.0-36.5); MEAN CORPUSCULAR VOLUME 88.2 fl (80.0-96.0); PLATELET COUNT, AUTOMATED 441 10^3/uL (150-450); RED BLOOD COUNT 5.16 10^6/uL (4.30-6.10); WHITE BLOOD COUNT 12.5 10^3/uL (4.0-10.0)
[2024-11-16 12:46] LABS: ETHYL ALCOHOL (ETHANOL) 0.003 % (0.000-0.010)
[2024-11-16 12:48] LABS: SALICYLATE LEVEL < 3.0 MG/DL (<30)
[2024-11-16 12:51] LABS: ALBUMIN 3.7 G/DL (3.2-5.2); ALKALINE PHOSPHATASE 83 U/L (40-129); ALT/SGPT 45 U/L (7.0-40); AST/SGOT 29 U/L (<34); BILIRUBIN,DIRECT 0.3 MG/DL (<0.4); BILIRUBIN,TOTAL 0.8 MG/DL (0.3-1.2); BLOOD UREA NITROGEN 19 MG/DL (9-23); CALCIUM LEVEL 8.8 MG/DL (8.5-10.1); CARBON DIOXIDE LEVEL 26 MMOL/L (20-31); CHLORIDE LEVEL 106 MMOL/L (98-107); CREATININE FOR GFR 0.62 MG/DL (0.70-1.30); GLOMERULAR FILTRATION RATE > 60.0 (>56); GLUCOSE, FASTING 172 MG/DL (60-100); POTASSIUM SERUM 3.7 MMOL/L (3.5-5.1); SODIUM LEVEL 140 MMOL/L (136-145); THYROID STIMULATING HORMONE 0.818 uIU/ML (0.55-4.78)
[2024-11-16 14:07] LABS: AMPHETAMINES LEVEL URINE NEGATIVE (NEGATIVE)
[2024-11-16 14:08] LABS: BARBITURATES URINE NEGATIVE (NEGATIVE); BENZODIAZEPINES URINE NEGATIVE (NEGATIVE); COCAINE METABOLITE URINE NEGATIVE (NEGATIVE); METHADONE URINE NEGATIVE (NEGATIVE); OPIATES URINE NEGATIVE (NEGATIVE); PHENCYCLIDINE URINE NEGATIVE (NEGATIVE)
[2024-11-16 14:10] LABS: CANNABINOIDS URINE POSITIVE (NEGATIVE)
[2024-11-16] MEDS: ACETAMINOPHEN 325 MG TAB PO ONE (14:25)
[2024-11-16] MEDS ORDERED: HOME MED LIST COMPLETE! XX SCH (16:00)
[2024-11-16] MEDS ORDERED: MAALOX 30 ML SUSP *UDC PO PRN (16:35)
[2024-11-16] MEDS ORDERED: diphenhydrAMINE 25MG CAP PO PRN (16:35)
[2024-11-16] MEDS ORDERED: LORazepam 1 MG TAB PO PRN (16:35)
[2024-11-16] MEDS ORDERED: OLANZapine 5 MG TAB PO PRN (16:35)
[2024-11-16 17:25] VITALS: BP 146/82; TEMP 97.5; O2SAT 98
[2024-11-16] MEDS ORDERED: LORazepam 2 MG TAB PO PRN (18:15)
[2024-11-16 18:18] VITALS: BP 146/82
[2024-11-16] MEDS: FOLIC ACID 1MG TAB PO SCH (18:30)
[2024-11-16] MEDS: MULTIVITAMINS/MINERALS THERAP 1 TAB PO SCH (18:30)
[2024-11-16] MEDS: THIAMINE 100 MG TAB PO SCH (18:30)
[2024-11-16] MEDS: NICOTINE POLACRILEX 2 MG GUM PO PRN (18:31)
[2024-11-16] MEDS: traZODone 50 MG TAB PO PRN (20:33)
[2024-11-16 22:04] VITALS: BP 154/86
[2024-11-17 07:10] VITALS: BP 134/76; TEMP 97.3; O2SAT 98
[2024-11-17 08:00] VITALS: BP 132/78
[2024-11-17] MEDS ORDERED: NICOTINE 14 MG/24 HR TRANSDERMAL TD SCH (09:00)
[2024-11-17 14:00] VITALS: BP 124/80
[2024-11-17 15:52] VITALS: BP 122/58; TEMP 97.5; O2SAT 98
[2024-11-17] MEDS: ACETAMINOPHEN 325 MG TAB PO PRN (16:06)
[2024-11-17] MEDS: ESCITALOPRAM OXALATE 10 MG TAB (LEXAPRO) PO SCH (17:27)
[2024-11-17 19:03] LABS: HEMOGLOBIN A1c 5.1 % (4.0-6.0)
[2024-11-17 19:07] LABS: CHOLESTEROL RISK RATIO 4.08 (<5); HDL CHOLESTEROL 35.7 MG/DL (>40); LDL CHOLESTEROL 80.5 MG/DL (<100); NON-HDL-C 110.3 MG/DL
[2024-11-17] MEDS: OLANZapine 5 MG TAB PO SCH (21:40)
[2024-11-18 06:51] VITALS: BP 154/66; TEMP 97.5; O2SAT 98
[2024-11-18] MEDS: IBUPROFEN 800 MG TAB PO PRN (09:18)
[2024-11-18 15:26] VITALS: BP 144/81; TEMP 97.9; O2SAT 98
[2024-11-18] MEDS: traZODone 50 MG TAB PO SCH (20:45)
[2024-11-19 06:37] VITALS: BP 141/69; TEMP 97.6; O2SAT 97
[2024-11-19 15:26] VITALS: BP 139/76; TEMP 97.7
[2024-11-20 06:51] VITALS: BP 154/85; TEMP 97.8; O2SAT 97
[2024-11-20 16:08] VITALS: BP 150/90; TEMP 97.7; O2SAT 97
[2024-11-21 06:14] VITALS: BP 156/78; TEMP 97.8; O2SAT 96
[2024-11-21 15:44] VITALS: BP 150/70; TEMP 98; O2SAT 96
[2024-11-22 06:51] VITALS: BP 160/72; TEMP 97.6; O2SAT 96
[2024-11-22 15:05] VITALS: BP 145/78; TEMP 97.9; O2SAT 97
[2024-11-23 06:14] VITALS: BP 164/94; TEMP 97; O2SAT 97
[2024-11-23 06:38] VITALS: BP 128/78
[2024-11-23] MEDS: MOM 30ML SUSPENSION UDC PO PRN (09:58)
[2024-11-23 15:55] VITALS: BP 144/88; TEMP 97.7; O2SAT 96
[2024-11-24 06:22] VITALS: BP 135/68; TEMP 97.5; O2SAT 97
[2024-11-25 06:21] VITALS: BP 133/85; TEMP 97.4; O2SAT 96
[2024-11-25 15:30] VITALS: BP 135/92; TEMP 97.9; O2SAT 97
[2024-11-26 06:23] VITALS: BP 130/84; TEMP 97.2; O2SAT 96
[2024-11-26 15:58] VITALS: BP 133/73; TEMP 97.8; O2SAT 100
[2024-11-27 06:27] VITALS: BP 135/60; TEMP 97.3; O2SAT 97
[2024-11-27] MEDS ORDERED: TRAZ-257 PO (09:04)
[2024-11-27] MEDS ORDERED: OLAN1TAB20 PO (09:04)
[2024-11-27] MEDS ORDERED: FOLI1TAB11 PO (09:04)
[2024-11-27] MEDS ORDERED: MULT-90 PO (09:04)
[2024-11-27] MEDS ORDERED: LEXA1TAB PO (09:04)
== END 2024-11-27 11:53 | disposition home or self-care (01) | DRG 753 ==
LOC: M ED 11:34 → M ED INP 16:34 → M PSY 17:15
PROVIDERS: ADMIT Internal Medicine; ATTEND Internal Medicine
DX: F31.5 Bipolar disorder, current episode depressed, severe, with psychotic features (principal); F41.1 Generalized anxiety disorder; F15.20 Other stimulant dependence, uncomplicated; F14.20 Cocaine dependence, uncomplicated; R45.851 Suicidal ideations; Z91.148 Patient's other noncompliance with medication regimen for other reason; F10.10 Alcohol abuse, uncomplicated; F12.90 Cannabis use, unspecified, uncomplicated; F17.200 Nicotine dependence, unspecified, uncomplicated; B18.2 Chronic viral hepatitis C; G43.909 Migraine, unspecified, not intractable, without status migrainosus; K76.0 Fatty (change of) liver, not elsewhere classified

== ENCOUNTER 2024-12-20 10:54 | Inpatient (IN) | payer OTHER, MEDICAID ==
[~2024-12-20] VITALS: Ht 188 cm; Wt 97.9 kg
[~2024-12-20 10:54] MED LIST changes: +FOLI1TAB11 PO; +LEXA1TAB PO; +MULT-90 PO; +OLAN1TAB20 PO; +TRAZ-257 PO
[2024-12-20 12:08] LABS: HEMATOCRIT 48.4 % (42.0-52.0); HEMOGLOBIN 16.8 g/dl (13.5-17.5); MEAN CORPUSCULAR HEMOGLOBIN 31.1 pg (27.0-33.0); MEAN CORPUSCULAR HGB CONC 34.7 g/dl (32.0-36.5); MEAN CORPUSCULAR VOLUME 89.5 fl (80.0-96.0); PLATELET COUNT, AUTOMATED 408 10^3/uL (150-450); RED BLOOD COUNT 5.41 10^6/uL (4.30-6.10); WHITE BLOOD COUNT 11.6 10^3/uL (4.0-10.0)
[2024-12-20 12:16] LABS: BARBITURATES URINE NEGATIVE (NEGATIVE); METHADONE URINE NEGATIVE (NEGATIVE); OPIATES URINE NEGATIVE (NEGATIVE); PHENCYCLIDINE URINE NEGATIVE (NEGATIVE)
[2024-12-20 12:17] LABS: BENZODIAZEPINES URINE NEGATIVE (NEGATIVE); COCAINE METABOLITE URINE NEGATIVE (NEGATIVE)
[2024-12-20 12:23] LABS: AMPHETAMINES LEVEL URINE POSITIVE (NEGATIVE); CANNABINOIDS URINE POSITIVE (NEGATIVE)
[2024-12-20 12:40] LABS: ETHYL ALCOHOL (ETHANOL) < 0.003 % (0.000-0.010)
[2024-12-20 12:42] LABS: ALBUMIN 3.8 G/DL (3.2-5.2); ALKALINE PHOSPHATASE 80 U/L (40-129); ALT/SGPT 38 U/L (7.0-40); AST/SGOT 24 U/L (<34); BILIRUBIN,DIRECT 0.2 MG/DL (<0.4); BILIRUBIN,TOTAL 0.6 MG/DL (0.3-1.2); BLOOD UREA NITROGEN 8 MG/DL (9-23); CALCIUM LEVEL 9.1 MG/DL (8.5-10.1); CARBON DIOXIDE LEVEL 29 MMOL/L (20-31); CHLORIDE LEVEL 107 MMOL/L (98-107); CREATININE FOR GFR 0.66 MG/DL (0.70-1.30); GLOMERULAR FILTRATION RATE > 90.0 (>56); GLUCOSE, FASTING 74 MG/DL (60-100); POTASSIUM SERUM 3.9 MMOL/L (3.5-5.1); SALICYLATE LEVEL < 3.0 MG/DL (<30); SODIUM LEVEL 144 MMOL/L (136-145); TOTAL PROTEIN 7.4 G/DL (5.7-8.2)
[2024-12-20 12:44] LABS: THYROID STIMULATING HORMONE 0.751 uIU/ML (0.55-4.78)
[2024-12-20] MEDS ORDERED: FOLI1TAB11 PO (14:48)
[2024-12-20] MEDS ORDERED: LEXA1TAB PO (14:48)
[2024-12-20] MEDS ORDERED: TRAZ-257 PO (14:48)
[2024-12-20] MEDS ORDERED: THERTAB52 PO (14:48)
[2024-12-20] MEDS ORDERED: ZYPR10TA PO (14:48)
[2024-12-20] MEDS ORDERED: HOME MED LIST COMPLETE! XX SCH (14:50)
[2024-12-20 15:52] VITALS: BP 115/58; TEMP 98.5; O2SAT 100
[2024-12-20] MEDS ORDERED: MAALOX 30 ML SUSP *UDC PO PRN (16:50)
[2024-12-20] MEDS ORDERED: ACETAMINOPHEN 325 MG TAB PO PRN (16:50)
[2024-12-20] MEDS ORDERED: diphenhydrAMINE 25MG CAP PO PRN (16:50)
[2024-12-20] MEDS ORDERED: OLANZapine 5 MG TAB PO PRN (16:50)
[2024-12-20] MEDS ORDERED: MOM 30ML SUSPENSION UDC PO PRN (16:50)
[2024-12-20] MEDS ORDERED: traZODone 50 MG TAB PO PRN (16:50)
[2024-12-20] MEDS: traZODone 100 MG TAB PO SCH (20:50)
[2024-12-20] MEDS: OLANZapine 10 MG TAB PO SCH (20:50)
[2024-12-21 06:38] VITALS: BP 114/67; TEMP 97.7; O2SAT 98
[2024-12-21] MEDS: FOLIC ACID 1MG TAB PO SCH (09:49)
[2024-12-21] MEDS: ESCITALOPRAM OXALATE 10 MG TAB PO SCH (09:49)
[2024-12-21] MEDS: NICOTINE 21MG/24HR 1 EA TRANSDERMAL TD SCH (09:51)
[2024-12-21 15:42] VITALS: BP 132/70; TEMP 97.5; O2SAT 96
[2024-12-22 06:28] VITALS: BP 120/66; TEMP 97.2; O2SAT 99
[2024-12-22] MEDS ORDERED: ONDANSETRON 4MG TAB PO PRN (09:40)
[2024-12-22] MEDS: IBUPROFEN 400MG TAB PO PRN (14:30)
[2024-12-22 15:55] VITALS: BP 136/83; TEMP 97.4; O2SAT 100
[2024-12-23 06:28] VITALS: BP 124/61; TEMP 97.8; O2SAT 96
[2024-12-23 16:00] VITALS: BP 148/82; TEMP 97.5; O2SAT 99
[2024-12-24 06:35] VITALS: BP 130/61; TEMP 97.4; O2SAT 99
[2024-12-24 15:29] VITALS: BP 158/80; TEMP 97.4; O2SAT 99
[2024-12-25 06:45] VITALS: BP 133/72; TEMP 97.8; O2SAT 96
[2024-12-25 15:53] VITALS: BP 133/63; TEMP 97.9; O2SAT 97
[2024-12-26] MEDS ORDERED: OLAN1TAB20 PO (02:14)
[2024-12-26] MEDS ORDERED: TRAZ-257 PO (02:14)
[2024-12-26] MEDS ORDERED: LEXA1TAB PO (02:14)
[2024-12-26 06:33] VITALS: BP 125/65; TEMP 97.2; O2SAT 98
== END 2024-12-26 13:15 | disposition home or self-care (01) | DRG 751 ==
LOC: M ED 10:54 → M ED INP 14:06 → M PSY 15:53
PROVIDERS: ADMIT Psychiatry & Neurology Psychiatry; ATTEND Psychiatry & Neurology Psychiatry
DX: F33.1 Major depressive disorder, recurrent, moderate (principal); F14.20 Cocaine dependence, uncomplicated; R45.851 Suicidal ideations; F15.20 Other stimulant dependence, uncomplicated; F41.1 Generalized anxiety disorder; Z59.00 Homelessness unspecified; B18.2 Chronic viral hepatitis C; G43.909 Migraine, unspecified, not intractable, without status migrainosus; F17.200 Nicotine dependence, unspecified, uncomplicated; F10.90 Alcohol use, unspecified, uncomplicated